=== PATIENT | male | born 1950 | race Caucasian/White ===

== ENCOUNTER 2024-07-20 09:18 | Emergency (ER) | payer MEDICARE, SELFPAY ==
--- NOTE | ~2024-07-20 | XR_ITS ---
EXAMINATION: XR hip RT 2V w AP pelvis DATE: 07/20/2024 10:14 INDICATION: Right hip pain. TECHNIQUE: An anteroposterior view of the pelvis and 2 views of right hip were obtained. COMPARISON: None. FINDINGS: There is lumbar levocurvature and severe spondylosis. No fracture. There is mild osteoarthr itis of the hips. Osteitis pubis is noted. IMPRESSION: 1. Mild osteoarthritis of the hips. Reviewed, dictated and finalized at location A.
--- NOTE | 2024-07-20 09:21 | ED.LOWEXIN ---
HPI - Extremity Injury (Lower) General Chief Complaint: Extremity Injury, Lower Stated Complaint: R HIP PAIN Time Seen by Provider: 07/20/24 09:21 Source: patient Mode of arrival: ambulatory Limitations: no limitations History of Present Illness HPI Narrative: Yury is a 73-year-old male patient presenting to the clinic today with complaints of right posterior lower hip buttocks pain. He reports the symptoms started on Tuesday. Reports the pain is sharp and rates it a 6/10 currently pop states the pain is worse with ambulation and bearing weight. No known injury. Does have some pain radiating from the buttocks to the back of the right posterior thigh. Denies any urinary symptoms. No saddle anesthesia or loss of bowel bladder. Related Data Home Medications Medication Instructions Recorded Confirmed aspirin 81 mg tablet,delayed 81 mg PO DAILY 12/31/21 07/20/24 release (Adult Low Dose Aspirin) cholecalciferol (vitamin D3) 50 50 mcg PO DAILY 01/04/22 07/20/24 mcg (2,000 unit) capsule magnesium gluconate 30 mg (550 mg) 30 mg PO DAILY 05/11/24 07/20/24 tablet Allergies Allergy/AdvReac Type Severity Reaction Status Date / Time lisinopril Allergy Unknown Cough Verified 07/20/24 10:00 Review of Systems Review of Systems: Pertinent positives per HPI. Patient denies any fever, chills, rash, headache, visual changes, dizziness, cough, runny nose, sore throat, shortness of breath, chest pain, palpitations, nausea, vomiting, diarrhea, constipation, abdominal pain, or any urinary issues. [facility] Past Medical History Medical History Normal colonoscopy 12/26 Repeat 12/31 Surgical History Surgical History History of total knee arthroplasty bilateral Family History Family History Father Carcinoma of colon Mother Breast cancer Daughter Diabetes mellitus Social History Social History Smoking status: Never smoker Second hand tobacco smoke exposure: No Alcohol intake: current Drinks per week: 2 Substance use: never Substance use type: does not use Living arrangements: with family Occupation/Education: retired Gender identity (if verbalized by the patient): Male Sexual Orientation (if Verbalized by the Patient): Straight or Heterosexual Spiritual care concerns: No Agree to blood products: Yes Comments At the time of my signature, I reviewed and agree with the nursing past medical, surgical, social, and family history. There is no relevant family history pertinent to the patient complaint. Exam Narrative: General: Well-developed, obese in no apparent distress Head: Normocephalic, atraumatic. Cardio: Regular rate and rhythm, s1 and s2 normal, no murmur appreciated. Resp: Clear to auscultation bilaterally, no rhonchi, rales, wheezing or rubs. Musculoskeletal: No deformity, tender to palpation over the right posterior lower hip/buttocks, grossly normal range of motion, muscle strength strong and equal in BLE. SLT negative, patellar reflexes 2/4 bilaterally, negative foot drop, normal gait and station Course Course Emergency Course: Portions of this record may have been created with voice recognition software. Level of Care: Express Care Visit Vital Signs Vital signs: Vital Signs Temperature 35.6 C L 07/20/24 09:29 Pulse Rate 77 07/20/24 09:29 Respiratory Rate 16 07/20/24 09:29 Blood Pressure 118/58 L 07/20/24 09:29 Pulse Oximetry 99 07/20/24 09:29 Temperature 35.6 C L 07/20/24 09:29 Pulse Rate 77 07/20/24 09:29 Respiratory Rate 16 07/20/24 09:29 Blood Pressure 118/58 L 07/20/24 09:29 Pulse Oximetry 99 07/20/24 09:29 Vital signs reviewed MDM - Extremity Injury (Lower) MDM Narrative Medical decisio
[2024-07-20 09:29] VITALS: BP 118/58; PULSE 77; RESP 16; TEMP 35.6; O2SAT 99
== END 2024-07-20 10:27 | disposition home or self-care (01) ==
PROVIDERS: Emergency Provider Nurse Practitioner Family; PCP Family Medicine Adolescent Medicine
DX: M16.0 Bilateral primary osteoarthritis of hip (principal); M47.816 Spondylosis without myelopathy or radiculopathy, lumbar region; M86.8X8 Other osteomyelitis, other site; Z96.653 Presence of artificial knee joint, bilateral
CPT/HCPCS: 73502; 99213; G0463

== ENCOUNTER 2025-05-17 00:38 | Day surgery (SDC) | payer MEDICARE, SELFPAY ==
[2025-04-30 10:48] VITALS: BMI 32.7
--- OUTSIDE RECORDS SUMMARY | 2025-05-17 00:40 | XMS_ITS | Clinical Summary ---
Author Organization [facility] [employer] Address [address] [place] [address] Care Team Providers Care Manager Drive Name Role Phone Leon Buck MD Primary Care Provider + Source Comments [facility] [employer],non-owned Affiliates and Associated Physician Practices is amultiple site organization consisting of ambulatory clinics and hospital sitesin [place], [place], [place] and [place]. This disclosure is being madepursuant to the Care Everywhere program and may not contain all information available regarding this patient. Last updated 18.[facility] [employer] Allergies No known active allergies Medications * Be aware that medications may not be up to date on this document. Alwaysverify current medications with the patient. No known medications Active Problems Problem Noted Date Diagnosed Date S/P total knee replacement using cement, scout al 11/10/2017 Social History Tobacco Use Types Packs/Day Years Used Date Smoking Tobacco: Never Assessed Sex and Gender Information Value Date Recorded Sex Assigned at Not on file Legal Sex Male 10:53 AM CDT Gender Identity Not on file Sexual Orientation Not on file Plan of Treatment Health Maintenance Due Date Last Done Comments COLOGUARD (AGES 45-75) - COL ON CA SCREENING 1950 COLON MONITORING 1950 COLONOSCOPY - COLON CA SCREENING 1950 CT COLONOGRAPHY - COLON CA SCREENING 1950 Colorectal Cancer Screening 1950 FIT - COLON CA SCREENING 1950 FLEX SIG - COLON CA SCREENING 1950 LIPID TESTING 1950 HEPATITIS C SCREENING 07/22/1968 DTAP/TDAP/TD VACCINES (1 - Tdap) 1969 PNEUMOCOCCAL VACCINE 50+ (1 of 1 - PCV) 2000 ZOSTER VACCINE (1 of 2) 2000 COVID-19 VACCINE (1 - 2023-2 5 season) 2024 DEPRESSION SCREENING 11/07/2024 INFLUENZA VACCINE (Season Ended) 2025 Respiratory Syncytial Virus (RSV) Vaccine Pt: or over 60 yrs (1 - 1-dose 75+ series) 2025 HEPATITIS B VACCINE Aged Out No longe r eligible based on patient's age to complete this topic HIB VACCINE Aged Out No longer eligi ble based on patient's age to complete this topic HPV VACCINE Aged Out No longer eligi ble based on patient's age to complete this topic MENINGOCOCCAL (Group B) VACC INE SHARED DECISION-MAKING Aged Out No longer eligibl e based on patient's age to complete this topic MENINGOCOCCAL GROUPS A/C/Y/W VACCINE Aged Out No longer eligible b ased on patient's age to complete this topic Insurance MEDICARE AET [facility] Address: [facility] [id number] [place] [address] Relationship Specialty Start Date End Date Leon Buck MD [address] [place] [id number] PCP - General Family Medicine 11/09/17
[2025-05-17 10:59] VITALS: BP 155/98; PULSE 72; RESP 20; TEMP 36.3; O2SAT 97
[2025-05-17 11:07] VITALS: BMI 32.1
[2025-05-17] MEDS: LACTATED RINGERS 1,000 ML 150 ML IV CONT (11:13)
--- NOTE | 2025-05-17 11:56 | P.PNAN_ITS ---
Anes - Initial Pre Proc Eval Procedure: Operation Date: 05/17/25 12:30 Proposed Procedures p Screening Colonoscopy - Gavino Connelly MD Date/Time: 05/17/25 11:56 Surgeon: Gavino Connelly MD Pre Op Diagnosis: Neoplasm screening Patient Data Age: 74 Gender: M Height: 1.88 m Weight: 113.7 kg Allergies Allergy/AdvReac Type Severity Reaction Status Date / Time lisinopril Allergy Unknown Cough Verified 05/17/25 11:05 Home Medications ?Medication ?Instructions ?Recorded ?Confirmed ?Type aspirin 81 mg tablet,delayed 81 mg PO DAILY 12/31/21 05/17/25 History release (Adult Low Dose Aspirin) cholecalciferol (vitamin D3) 50 50 mcg PO DAILY 01/04/22 05/17/25 History mcg (2,000 unit) capsule magnesium gluconate 30 mg (550 mg) 30 mg PO DAILY 05/11/24 05/17/25 History tablet nifedipine 30 mg tablet,extended See Rx Instructions .Route 07/02/24 05/17/25 Rx release .COMPLEX #90 tabs irbesartan 300 mg tablet See Rx Instructions .Route 03/06/25 05/17/25 Rx .COMPLEX #90 tabs diclofenac sodium 75 mg See Rx Instructions .Route 05/14/25 05/17/25 Rx tablet,delayed release .COMPLEX #60 tabs Patient hx anesthesia problems: none Family hx anesthesia problems: none Results Review: All pre-operative results and documents have been reviewed as part of the pre- operative evaluation. [facility] Past Medical History Medical History Normal colonoscopy 12/26 Repeat 12/31 Surgical History Surgical History History of total knee arthroplasty bilateral Family History Family History Father Carcinoma of colon Mother Breast cancer Daughter Diabetes mellitus Social History Social History Social History: Caffeine-tea Smoking status: Never smoker Second hand tobacco smoke exposure: No Alcohol intake: current Drinks per week: 2 Substance use: never Substance use type: does not use Living arrangements: with family Occupation/Education: retired Gender identity (if verbalized by the patient): Male Sexual Orientation (if Verbalized by the Patient): Straight or Heterosexual Spiritual care concerns: No Agree to blood products: Yes Anes - Eval Final PreProcedure Day of Procedure 05/17/25 11:56 Patient weight: obese Heart: regular rate and rhythm Lungs: clear to auscultation Airway: Mallampati scale class II Neurological: alert and oriented Last oral intake: >/= 8 hours ASA classification: II Emergent: no Anesthetic plan: proceed Anesthesia type and monitoring: general GIVS and standard monitoring Results Review: All pre-operative results and documents have been reviewed as part of the pre- operative evaluation. Informed Consent: The patient's anesthetic plan and its attendant risks and benefits were discussed with the patient/family/POA. Questions were solicited and answers provided to the satisfaction of the patient/family/POA.
--- NOTE | 2025-05-17 12:45 | PM.HPGS ---
History of Present Illness History of Present Illness Consent: Risks, benefits, and alternatives have been discussed and questions answered. Patient agrees to proceed with procedure. Chief complaint: Neoplasm screening Narrative: Fabio Sampson is a 74 year old male here for colonoscopy, last one 5 years ago, father had colon cancer Review of Systems Review of Systems: All systems reviewed & are unremarkable except as noted in HPI and below PMFSH Past Medical History Medical History (Updated 05/17/25 @ 12:46 by Gavino Connelly MD) Family history of colon cancer in father Normal colonoscopy 12/26 Repeat 12/31 Surgical History Surgical History History of total knee arthroplasty bilateral Family History Family History Father Carcinoma of colon Mother Breast cancer Daughter Diabetes mellitus Social History Social History Social History: Caffeine-tea Smoking status: Never smoker Second hand tobacco smoke exposure: No Alcohol intake: current Drinks per week: 2 Substance use: never Substance use type: does not use Living arrangements: with family Occupation/Education: retired Gender identity (if verbalized by the patient): Male Sexual Orientation (if Verbalized by the Patient): Straight or Heterosexual Spiritual care concerns: No Agree to blood products: Yes Meds Home Medications and Allergies Home Medications ?Medication ?Instructions ?Recorded ?Confirmed ?Type aspirin 81 mg tablet,delayed 81 mg PO DAILY 12/31/21 05/17/25 History release (Adult Low Dose Aspirin) cholecalciferol (vitamin D3) 50 50 mcg PO DAILY 01/04/22 05/17/25 History mcg (2,000 unit) capsule magnesium gluconate 30 mg (550 mg) 30 mg PO DAILY 05/11/24 05/17/25 History tablet nifedipine 30 mg tablet,extended See Rx Instructions .Route 07/02/24 05/17/25 Rx release .COMPLEX #90 tabs irbesartan 300 mg tablet See Rx Instructions .Route 03/06/25 05/17/25 Rx .COMPLEX #90 tabs diclofenac sodium 75 mg See Rx Instructions .Route 05/14/25 05/17/25 Rx tablet,delayed release .COMPLEX #60 tabs Allergies Allergy/AdvReac Type Severity Reaction Status Date / Time lisinopril Allergy Unknown Cough Verified 05/17/25 11:05 Exam Const: General: comfortable and no acute distress HENMT: Face/Nose/Sinus: Normal nares present Eyes: General: appearance normal, both eyes and all related structures Neck: Neck: no JVD Resp: Auscultation: clear to auscultation bilaterally Cardio: Rate: regular rate Rhythm: regular rhythm GI: Inspection: non-distended GI Palp: Yes Soft to palpation Skin: General skin exam: normal color Neuro: Speech: normal speech Extrem: General: normal to inspection Psych: Mental Status: mental status grossly normal Assessment and Plan Assessment and plan (1) Family history of colon cancer in father: Code(s): Z80.0 - Family history of malignant neoplasm of digestive organs Status: Acute Assessment and Plan: colonoscopy
[2025-05-17 12:59] VITALS: BP 112/64; PULSE 64; RESP 16; O2SAT 97
[2025-05-17 13:09] VITALS: BP 135/78; PULSE 55; RESP 16; O2SAT 97
[2025-05-17 13:19] VITALS: BP 134/78; PULSE 53; RESP 18; O2SAT 97
[2025-05-17 13:29] VITALS: BP 111/73; PULSE 81; RESP 18; O2SAT 100
== END 2025-05-17 13:33 | disposition home or self-care (01) ==
PROVIDERS: PCP Family Medicine Adolescent Medicine; Referring Provider Family Medicine Adolescent Medicine; Visit Provider Internal Medicine Gastroenterology
PROC: 0DJD8ZZ Inspection of Lower Intestinal Tract, Via Natural or Artificial Opening Endoscopic (ICD-10-PCS; CPT 45378; principal; 2025-05-17 12:30)
DX: Z12.11 Encounter for screening for malignant neoplasm of colon (principal); K57.30 Diverticulosis of large intestine without perforation or abscess without bleeding; K64.8 Other hemorrhoids; Z80.0 Family history of malignant neoplasm of digestive organs; E66.9 Obesity, unspecified; Z68.32 Body mass index [BMI] 32.0-32.9, adult
CPT/HCPCS: G0105; J2003; J2704; J7120